=== PATIENT | female | born 1965 | race Caucasian/White ===

== ENCOUNTER 2020-11-26 18:53 | Emergency (ER) | payer MEDICAID ==
[~2020-11-26] VITALS: Ht 162.6 cm; Wt 105.9 kg
[2020-11-26 18:58] VITALS: BP 166/87
[2020-11-26] MEDS ORDERED: ASPIRIN 81 MG TABLET CHEW PO ONE (19:30)
--- NOTE | 2020-11-26 20:48 | NUR ---
left maricruz - signed out at reg desk
== END 2020-11-26 20:49 | disposition left against medical advice (07) ==
LOC: MERGE 18:53 → ED 19:15
DX: U07.1 COVID-19 (principal); B34.9 Viral infection, unspecified; R07.89 Other chest pain; R73.9 Hyperglycemia, unspecified
CPT/HCPCS: 71045; 93005; 99285; U0003; U0005